=== PATIENT | male | born 1970 | race Two or more races ===

== ENCOUNTER 2017-01-14 12:54 | Emergency (ER) | payer OTHER ==
[~2017-01-14] VITALS: Ht 157.5 cm; Wt 63.5 kg
[2017-01-14] VITALS (7 sets, daily range): BP systolic 147–173; BP diastolic 70–76
[2017-01-14] MEDS ORDERED: Norco 5mg/325mg tab PO ONE (13:15)
[2017-01-14] MEDS ORDERED: Morphine Sulfate 4mg/ml Inj IVP ONE (14:15)
[2017-01-14 14:35] LABS: MEAN CORPUSCULAR HEMOGLOBIN 29.2 PG (27.0-31.0); MEAN CORPUSCULAR VOLUME 89 FL (80-99); MEAN PLATELET VOLUME 7.2 FL (6.5-10.1); PLATELET COUNT 261 K/UL (150-450); RED BLOOD COUNT 5.37 M/UL (4.70-6.10); RED CELL DISTRIBUTION WIDTH 11.4 % (11.6-14.8); WHITE BLOOD COUNT 19.5 K/UL (4.8-10.8)
--- NOTE | 2017-01-14 14:47 | Diagnostic Imaging Report ---
Indications: Left leg/ankle/foot injury, pain Technique: 2 views left leg, 3 views left ankle, 3 views left foot Findings: Comparison: None There is a highly comminuted of the distal tibial metaphysis and epiphysis, extending to the distal articular surface. Main distal fracture fragments demonstrate partial bone width displacement and moderate angulation anteriorly. The talus appears to maintain articulation with these fragments. The lateral aspect of the tibiotalar joint appears mildly widened and there is suggestion of displacement of one or more fracture fragments into this joint space. There is a comminuted segmental fracture of distal fibular diaphysis. The main distal fragment demonstrates complete bone width posterior displacement and moderate anterior angulation with approximately 1 cm of overriding. The main butterfly fragment demonstrates posterior displacement and angulation. The distal fibula appears to maintain its alignment with the talus, though the lateral aspect of the tibial talar joint appears somewhat widened, as described above. The distal tibiofibular articulation appears grossly disrupted. Surrounding soft tissues are swollen without obvious foreign body or gas. No additional fracture, dislocation, joint space widening or, or other acute change identified. There IMPRESSION: Comminuted, displaced and angulated fractures of the distal tibia and fibula as described, former intra-articular. Apparent widening of the lateral aspect of the tibiotalar joint space without gross dislocation. One or more intra-articular fracture fragments not excludable. Widening of the distal tibiofibular articulation
[2017-01-14 14:54] LABS: ALANINE AMINOTRANSFERASE 22 U/L (3-41); ALBUMIN/GLOBULIN RATIO 1.5 (1.0-2.7); ANION GAP 16 (5-15); ASPARTATE AMINO TRANSFERASE 28 U/L (5-40); CALCIUM 9.4 mg/dL (8.6-10.2); CARBON DIOXIDE 24 mEQ/L (20-30); CHLORIDE 95 mEQ/L (98-107); CREATININE 0.7 mg/dL (0.7-1.2); GLOMERULAR FILTRATION RATE > 60 mL/min (>60); HEMOLYSIS 8; POTASSIUM 3.8 mEQ/L (3.4-4.9); SODIUM 135 mEQ/L (135-145); TOTAL PROTEIN 7.5 g/dL (6.6-8.7)
--- NOTE | 2017-01-14 15:02 | Emergency Room Report ---
History of Present Illness General Chief Complaint: Lower Extremity Injury Source: Patient (CLARISSA MERCHANT M.D.) Present Illness HPI 46-year-old male presents ED with left ankle pain and swelling. Patient states today he fell off a ladder and landed directly on the left leg. Fell from a height of approximately 6 feet. Denies any other injuries. Denies hitting his head or LOC. She notes pain and swelling and deformity to left ankle. Pain is 10/10, sharp, nonradiating. No other aggravating relieving factors. Unable to bear weight. Denies any other associated symptoms (CLARISSA MERCHANT M.D.) Allergies: Coded Allergies: No Known Allergies (Unverified , 01/14/17) Patient History Past Medical History: none Past Surgical History: none Pertinent Family History: none Social History: Denies: alcohol use, drug use, smoking Immunizations: UTD Reviewed Nursing Documentation: PMH: Agreed, PSxH: Agreed (CLARISSA MERCHANT M.D.) Nursing Documentation-PMH Past Medical History: No Stated History (CLARISSA MERCHANT M.D.) Review of Systems All Other Systems: negative except mentioned in HPI (CLARISSA MERCHANT M.D.) Physical Exam Vital Signs Date Time Temp Pulse Resp B/P Pulse Ox O2 Delivery O2 Flow Rate FiO2 01/14/17 12:59 98.1 74 20 173/75 100 Room Air Sp02 EP Interpretation: reviewed, normal General Appearance: alert, GCS 15, non-toxic, mild distress Head: normocephalic Eyes: bilateral eye PERRL, bilateral eye normal inspection ENT: normal ENT inspection Neck: normal inspection, no bony tend Respiratory: chest non-tender, lungs clear, normal breath sounds, speaking full sentences Cardiovascular #1: regular rate, rhythm, no edema Gastrointestinal: normal bowel sounds, non tender, soft, non-distended, no guarding, no rebound Rectal: deferred Genitourinary: no CVA tenderness Musculoskeletal: swelling - L ankle. deformity Neurologic: alert, oriented x3, responsive, motor strength/tone normal, sensory intact, speech normal Psychiatric: normal inspection Skin: normal inspection Lymphatic: normal inspection (CLARISSA MERCHANT M.D.) Procedures Splinting Splinting : Consent: Verbal Splint: poserior short Pre-Proc Neuro Vasc Exam: normal Post-Proc Neuro Vasc Exam: normal Patient Tolerated: Well Complications: None (CLARISSA MERCHANT M.D.) Medical Decision Making Diagnostic Impression: Primary Impression: Pilon fracture of left tibia Qualified Codes: S82.872A - Displaced pilon fracture of left tibia, initial encounter for closed fracture Additional Impression: Fall from ladder Qualified Codes: W11.XXXA - Fall on and from ladder, initial encounter ER Course Hospital Course 46-year-old male presents to ED with left ankle pain and deformity after fall from ladder Differential diagnoses include: fracture, dislocation, contusion Clinical course Patient placed on stretcher. After initial history and physical I ordered labs , tetanus, pain medication and x-rays of L foot, ankle, tibfib X-ray show comminuted pilon fracture of left ankle with intra-articular extension Discussed case with orthopedics; patient will require higher level of care transfer to trauma center, likely ex-fix required Discussed case with [facility] trauma team and agreed to accept the patient i. I feel this is a highly complex case requiring extensive working including EKG/Rhythm strip, Xray/CT/US, Blood/urine lab work, repeat exams while in ED, and administration of strong opiates/narcotics for pain control, admission to hospital or close patient follow up. Diagnosis - pilon fracture, fall from ladder Transferred in serious condition Labs Test 01/14/17 14:20 White Blood Count 19.5 K/UL (4.8-10.8) Red Blood Count 5.37 M/UL (4.70-6.10) Hemoglobin 15.7 G/DL (14.2-18.0) Hematocrit 47.6 % (42.0-52.0) Mean Corpuscular Volume 89 FL (80-99) Mean Corpuscular Hemoglobin 29.2 PG (27.0-31.0) Mean Corpuscular Hemoglobin Concent 33.0 G/DL (32.0-36.0) Red Cell Distribution Width 11.4 % (11.6-14.8) Platelet Count 261 K/UL (150-450) Mean Platelet Volume 7.2 FL (6.5-10.1) Neutrophils (%) (Auto) % (45.0-75.0) Lymphocytes (%) (Auto) % (20.0-45.0) Monocytes (%) (Auto) % (1.0-10.0) Eosinophils (%) (Auto) % (0.0-3.0) Basophils (%) (Auto) % (0.0-2.0) Prothrombin Time 10.0 SEC (9.30-11.50) Prothromb Time International Ratio 1.0 (0.9-1.1) Activated Partial Thromboplast Time 27 SEC (23-33) Sodium Level 135 mEQ/L (135-145) Potassium Level 3.8 mEQ/L (3.4-4.9) Chloride Level 95 mEQ/L (98-107) Carbon Dioxide Level 24 mEQ/L (20-30) Anion Gap 16 (5-15) Blood Urea Nitrogen 13 mg/dL (7-23) Creatinine 0.7 mg/dL (0.7-1.2) Estimat Glomerular Filtration Rate > 60 mL/min (>60) Glucose Level 131 mg/dL (74-106) Calcium Level 9.4 mg/dL (8.6-10.2) Total Bilirubin 0.5 mg/dL (0.0-1.2) Aspartate Amino Transf (AST/SGOT) 28 U/L (5-40) Alanine Aminotransferase (ALT/SGPT) 22 U/L (3-41) Alkaline Phosphatase 75 U/L (40-129) Total Protein 7.5 g/dL (6.6-8.7) Albumin 4.5 g/dL (3.5-5.2) Globulin 3.0 g/dL Albumin/Globulin Ratio 1.5 (1.0-2.7) (CLARISSA MERCHANT M.D.) ER Course Accepted for transfer to [facility] under Dr Don Neumann at 345pm. (AMANDEEP FRANCIS M.D.) Other X-Ray Diagnostic Results Other X-Ray Diagnostic Results : X-Ray Ordered: L ankle, L foot, L tibfib EP Interpretation: No Findings: other Number of Views: 3 Other Impression L ankle - Comminuted, displaced and angulated fractures of the distal tibia and fibula as described, former intra-articular.Apparent widening of the lateral aspect of the tibiotalar joint space without gross dislocation. One or more intra-articular fracture fragments not excludable. Widening of the distal tibiofibular articulation L foot - Comminuted, displaced and angulated fractures of the distal tibia and fibula as described, former intra-articular. Apparent widening of the lateral aspect of the tibiotalar joint space without gross dislocation. One or more intra-articular fracture fragments not excludable. Widening of the distal tibiofibular articulation L tibfib -Comminuted, displaced and angulated fractures of the distal tibia and fibula as described, former intra-articular. (CLARISSA MERCHANT M.D.) Last Vital Signs Date Time Temp Pulse Resp B/P Pulse Ox O2 Delivery O2 Flow Rate FiO2 01/14/17 14:38 98.0 01/14/17 14:30 78 18 147/70 98 Room Air Status: improved (CLARISSA MERCHANT M.D.) Disposition: [facility] Condition: Serious Referrals: NOT CHOSEN MULUGETA/,REFERRING (PCP) CLARISSA MERCHANT M.D. Jan 14, 2017 15:02 AMANDEEP FRANCIS M.D. Jan 14, 2017 15:52
[2017-01-14] MEDS ORDERED: fentaNYL 100 mcg/2 mL IV ONE (16:45)
[2017-01-14 16:53] LABS: APPEARANCE,URINE CLEAR; KETONES,URINE 2+ (NEGATIVE); LEUKOCYTE ESTERASE ,URINE NEGATIVE (NEGATIVE); NITRITE,URINE NEGATIVE (NEGATIVE); PH,URINE 6 (4.5-8.0); PROTEIN,URINE NEGATIVE (NEGATIVE); UROBILINOGEN,URINE NORMAL MG/DL (0.0-1.0)
[2017-01-14] MEDS ORDERED: UNOBMED (17:04)
[2017-01-14 17:08] LABS: RBC,URINE 0-2 /HPF (0 - 0); WBC,URINE 0-2 /HPF (0 - 0)
[2017-01-14 17:09] LABS: BACTERIA,URINE OCCASIONAL /HPF; MUCUS,URINE FEW /LPF (NONE/OCC)
[2017-01-14 17:31] LABS: BAND NEUTROPHILS % (MANUAL) 7 % (0-8); LYMPHOCYTES % (MANUAL) 2 % (20-45); NEUTROPHILS % (MANUAL) 87 % (45-75); PLATELET MORPHOLOGY NORMAL; TOTAL CELLS COUNTED 100
[2017-01-14 17:32] LABS: BASOPHILS % (MANUAL) 0 % (0-2); EOSINOPHILS % (MANUAL) 0 % (0-3); PLATELET ESTIMATE ADEQUATE
== END 2017-01-14 19:22 | disposition short-term general hospital (02) ==
LOC: EMR 13:36 → CANBEDREQ 16:47 → EMR 19:22
DX: S82.872A Displaced pilon fracture of left tibia, initial encounter for closed fracture (principal); W11.XXXA Fall on and from ladder, initial encounter; Y92.9 Unspecified place or not applicable
CPT/HCPCS: 29515; 36415; 73590; 73610; 73630; 80053; 81001; 85007; 85025; 85610; 85730; 86850; 86900; 86901; 96374; 96375; 99285; J2270; J3010; J7040